=== PATIENT | male | born 1970 | race Asian ===

== ENCOUNTER 2018-05-28 07:56 | Emergency (ER) | payer OTHER ==
[~2018-05-28] VITALS: Ht 167.6 cm; Wt 72.6 kg
[2018-05-28 07:59] VITALS: BP 138/107
--- NOTE | 2018-05-28 08:03 | NUR ---
PT AMBULATES TO BED 9
--- NOTE | 2018-05-28 08:12 | NUR ---
RN ON DUTY PM SHIFT HAD FECAL MATTER SPLASHED/SPLATTER INTO OD --- PT STATES HE HAS FLUSHED HIS EYE WITH WATER--- DENIES VISUAL CHANGES HX--DM, HTN, HYPERLIPIDEMIA RX--METFORMIN, GLIPIZIDE, LOSARTAN, LIPITOR
[2018-05-28 08:55] VITALS: BP 138/107
--- NOTE | 2018-05-28 08:55 | NUR ---
Pt ambulate to the lab with Prepress Proofer Meg and did not come back to the unit Addendum: 05/28/18 at 0946 by SARAH instructions was given by material handling warehouse supervisor ASHU Weaver
--- NOTE | 2018-05-28 09:00 | NUR ---
Dr Phillips notified, is aware D/C with instructions by warehouse sorter Meg
[2018-05-29 09:13] LABS: HEPATITIS B SURFACE ANTIGEN Negative (Negative)
== END 2018-05-28 09:00 | disposition home or self-care (01) ==
LOC: MED 07:56
DX: R19.7 Diarrhea, unspecified (principal); R19.5 Other fecal abnormalities; E11.9 Type 2 diabetes mellitus without complications; I10 Essential (primary) hypertension; E78.5 Hyperlipidemia, unspecified
CPT/HCPCS: 36415; 86592; 86702; 86803; 87340; 99283